=== PATIENT | male | born 1975 | race Caucasian/White ===

== ENCOUNTER 2020-06-02 09:00 | Day surgery (SDC) | payer OTHER ==
[~2020-06-02] VITALS: Ht 177.8 cm; Wt 77.2 kg
--- NOTE | ~2020-06-02 | OR ---
[facility] [address] [place], [place] [address] [place] DATE OF OPERATION: 06/02/2020 SURGEON: Donal Pavon MD LOCATION: [facility] Surgery. PREOPERATIVE DIAGNOSIS: Inferior turbinate hypertrophy. POSTOPERATIVE DIAGNOSIS: Inferior turbinate hypertrophy. PROCEDURE: Cautery bilateral inferior turbinates. ANESTHESIA: General LMA. Dan. ANGELA HISTORY: Low is a 44-year-old young man with a long history of nasal problems, history of nasal trauma. Previous nasal surgery, probably 20 years ago consisting of a probable septoplasty close reduction. He has had continued nasal obstruction, identified inferior turbinate hypertrophy in the office. This has been unresponsive to appropriate medications and he is taken to the operating for the above-mentioned procedures. PROCEDURE AND FINDINGS: After informed consent, the patient was taken to the operating room, placed in the supine position where general LMA anesthesia was induced. The patient and procedure were verified. The patient received preoperative intranasal oxymetazoline and intravenous Ancef. Headlight speculum exam of the nasal cavity showed hypertrophic turbinates, partially decongested. There was a small septal perforation several centimeters posterior to the columella. A very small essentially pinpoint perforation, but probably representing complication from his previous septoplasty. In any event, the turbinates were cauterized starting on the right side long handle needle point cautery, multiple passes transmucosal on the medial and inferior surface of the inferior turbinate extending anteriorly all the way back posteriorly. Excellent decongestion of the turbinate was obtained in this manner. Same procedure on the left inferior turbinate. Bleeding was minimal, stopped afterwards. Packing was placed, trimmed Merocel, equal amount, coated with Neosporin, tied anteriorly over a pad. The pharynx PATIENT NAME: PATRICIO ADORNO II OPERATIVE REPORT DATE OF : 75 REPORT #: [id number] PHYSICIAN: DONAL PAVON MD PCP: [facility] REPORT IS CONFIDENTIAL AND NOT TO BE RELEASED WITHOUT AUTHORIZATION [facility] [address], [place] [address] Draft was suctioned, clear of blood secretions. The patient was then awakened, extubated, transported to recovery room in good condition. COMPLICATIONS: No complications. BLOOD LOSS: Minimal. SPECIMEN: No specimen. DRAINS: No drains. PACKING: One piece of Merocel each nostril. Donal Pavon MD /[facility] /[id number] Copies: ~ PATIENT NAME: PATRICIO ADORNO II OPERATIVE REPORT DATE OF : 75 REPORT #: [id number] PHYSICIAN: DONAL PAVON MD PCP: [facility] REPORT IS CONFIDENTIAL AND NOT TO BE RELEASED WITHOUT AUTHORIZATION
[~2020-06-02 09:00] MED LIST: BENADRYL25 MG PO; FISH OIL 1,0001 EAC2 PO; IBUPROFEN400 MG PO; NORCO 5-325 TA1 EACH PO; OXYCODONE HCL5 MG PO; VENTOLIN HFA18 GM INH; ZYRTEC10 MG PO
[2020-06-02] MEDS ORDERED: VITAMIN B COMP1 EAC1 PO (09:19)
[2020-06-02] MEDS ORDERED: PROBIOTIC1 EAC3 PO (09:20)
[2020-06-02] MEDS ORDERED: VITAMIN D3125 MC2 PO (09:21)
[2020-06-02] MEDS ORDERED: BROMELAINS500 MG PO (09:30)
--- NOTE | 2020-06-02 10:50 | NUR ---
06/02/20 1050 [address] 1039-PATIENT ARRIVED TO PACU ON 6L MASK NONAROUSABLE RR EVEN. SB HR MID 40'S IVF INFUSING. GAUZE TO NOSE CDI. 1048-PATIENT AROUSING TO VERBAL STIMULI EYES CLOSED. ORAL AIRWAY REMOVED. PATIENT ASKED IF COMFORTABLE REPORTS "IM GREAT" DROWSY DOZES BACK TO SLEEP RR EVEN
--- NOTE | 2020-06-02 11:22 | NUR ---
PATIENT BACK IN DAY SURGERY ROOM FROM PACU. DENIES PAIN. DENIES NAUSEA. NASAL PACKING IN PLACE. MOUSTACHE DRESSING IN PLACE IS CLEAN, DRY AND INTACT. VS CHECKED. IV SITE WNL. SCDs ON. PATIENT GIVEN ICE WATER. CALL LIGHT WITHIN REACH. AT BEDSIDE.
[2020-06-02] MEDS ORDERED: CEPHALEXIN500 M1 PO (11:32)
[2020-06-02] MEDS ORDERED: HYDROCODON-ACE1 EA10 PO (11:33)
--- NOTE | 2020-06-02 12:39 | NUR ---
1150: LUNCH ORDERED FOR PATIENT. PATIENT ASSISTED OOB AND TO WALK AROUND ROOM. GAIT STEADY. PATIENT GETTING DRESSED WITH HELP FROM . 1220: VS CHECKED. DISCHARGE INSTRUCTIONS GIVEN TO PATIENT AND . LUNCH HERE. PATIENT EATING. CALL LIGHT WITHIN REACH. AT BEDSIDE.
--- NOTE | 2020-06-02 12:58 | NUR ---
1245: PATIENT TOLERATED LUNCH. MOUSTACHE DRESSING CHANGED. SMALL AMOUNT OF BLOOD TINGED DRAINAGE ON MOUSTACHE DRESSING. PATIENT AND INSTRUCTED ON HOW TO CHANGE MOUSTACHE DRESSING. IV DC'D WNL. TIP INTACT. DRESSING APPLIED. 1252: PATIENT DISCHARGED TO HOME WITH VIA WHEELCHAIR.
== END 2020-06-02 12:53 | disposition home or self-care (01) ==
LOC: OPS 09:00 → DS 09:45 → OPS 10:00
PROVIDERS: ATTEND Otolaryngology
PROC: 095L7ZZ Destruction of Nasal Turbinate, Via Natural or Artificial Opening (ICD-10-PCS; principal; 2020-06-02 10:00)
DX: J34.3 Hypertrophy of nasal turbinates (principal)
CPT/HCPCS: J0131; J0690; J1100; J1885; J2001; J2405; J2704; J3010; J7121